=== PATIENT | male | born 1980 | race Caucasian/White ===

== ENCOUNTER 2023-09-05 00:15 | Emergency (ER) | payer OTHER, SELFPAY ==
[2023-09-05 00:16] VITALS: BMI 40.8
[2023-09-05 00:21] VITALS: BP 127/89
[2023-09-05 05:47] VITALS: BP 124/81
[2023-09-05 06:00] VITALS: BP 128/86
--- NOTE | 2023-09-05 06:49 | ED.GENMED ---
History of Present Illness
General
Chief Complaint: Bowel Problem
Source: patient and spouse
Exam Limitations: none
Time Seen by Provider: 09/05/23 05:28
Nursing documentation reviewed up to this point in time: agreed with
Travel History
Have you had any contact with someone who has COVID-19?: No
Do you have any symptoms of coronavirus? Fever > 100 degrees, chills, cough, shortness of breath, sore throat, loss of taste or smell, muscle aches, or headache?: No
History of Present Illness
History of Present Illness:
This is a 42-year-old gentleman who underwent right knee arthroscopy August 26. He has been taking oxycodone postoperative until just 2 days ago. He complains of significant constipation with lower abdominal discomfort and bloating. His last bowel
movement was a small hard nonbloody stool 2 days ago.
He has been taking stool softeners since initiating oxycodone after surgery but since yesterday initiated Metamucil and he also consumed a full bottle of magnesium citrate. He admits to some intermittent rectal pressure which comes and goes. He
denies rectal pain. He denies nausea nor vomiting. He denies fever nor chills. No difficulty urinating. His appetite has been good.
No prior history of constipation.
Past History
Past History
ED Past Medical History: Hypothyroidism and Other (lumbar disc disease)
ED Past Surgical History: Orthopedic (Right knee arthroscopy August 27, 2023)
Social History
Tobacco: Non-smoker
Alcohol: Occasional
Personal:
Living: with family
Employment: Employed
Family History
Family History: Other (Noncontributory)
Phy Exam
Physical Exam
Physical Exam:
GENERAL: 42-year-old gentleman appears his stated age, awake and alert, pleasant, appears mildly uncomfortable but easily communicative. is accompanying.
EYE: anicteric
NECK: Supple, nontender, no meningismus, no significant adenopathy.
ENT: oral mucosa is moist. No rhinorrhea.
CARDIAC: Regular rate and rhythm. no murmur.
LUNGS: Clear breath sounds bilaterally, no acute respiratory distress, no wheezes/rales/rhonchi
ABDOMEN: Soft, mildly distended, mild generalized tenderness to the lower abdomen without rebound or guarding or rigidity, normoactive BS.
NEUROLOGICAL: Alert and oriented x3, no focal neuro deficits. Gait is steady.
SKIN: Warm and dry, normal color, skin intact. No rash.
MUSCULOSKELETAL: No C/C/E. peripheral pulses are full and equal b/l. There is an Paulo wrap that is dry and intact covering right knee. Minimal tenderness about the right knee. Mildly restricted flexion of right knee.
PSYCH: Normal and appropriate interaction.
Course
Orders/Labs/Results
Orders:
Orders
09/05/23 00:29
Obstruct Series W/PA Chest [CR Obstruct Series W/pa Chest] Urgent
Comment:
Reason For Exam: no BM for 2 days post op knee
09/05/23 05:42
Bladder Scan- Treatment ONCE
Enema- Treatment ONCE
Type: Milk of Molasses
Vital Signs
Initial and Last Documented VS:
Initial Vital Signs
Temp Pulse Resp BP Pulse Ox
98.2 F 98 16 127/89 98
09/05/23 00:21 09/05/23 00:21 09/05/23 00:21 09/05/23 00:21 09/05/23 00:21
Last Documented Vital Signs
Temp Pulse Resp BP Pulse Ox
98.2 F 98 16 128/86 97
09/05/23 00:21 09/05/23 00:21 09/05/23 00:21 09/05/23 06:00 09/05/23 06:00
MDM/Problems Addressed
Differential Diagnosis Includes:
Patient presents with what I suspect is opioid induced constipation.
Abdomen is soft with mild tenderness suprapubic region.
Obstruction series shows moderate stool within the rectosigmoid region with symmetric air-fluid levels ascending as well as descending colon suspicious for ileus. There is no evidence of obstruction, no free air.
Will check bladder scan assess for potential bladder outlet obstruction and plan for milk of molasses enema.
Vital signs are stable and overall nontoxic in appearance. No indication for laboratory studies at this point.
*Radiology
Radiology exam reviewed: preliminary read by ED provider
*Pulse Oximetry
Patient hypoxic: no
*Critical Care Note
Total Time (30-74mins, 75-104mins- exclusive of procedures): Not Applicable
Update Note
Update Note:
09/05/2023 0745 AM
Bladder scan only reveals 340 mL in the bladder and patient was able to void without difficulty prior to receiving milk of molasses enema.
He has had success after enema passing a large firm/soft stool and feels markedly improved. Patient
No abdominal pain and eager to be discharged to home.
Recommend he avoid any further laxatives today, especially after consuming a whole bottle of magnesium citrate last night.
Discussed importance of remaining well-hydrated on a daily basis.
Continue to avoid opioid medications, he may take Tylenol versus ibuprofen as needed for knee pain.
Prompt follow-up with PCP as well as orthopedist.
ED Attending Note
-
Portions of this chart may have been created with voice recognition software.� Occasional wrong word or��sound alike� substitutions may have occurred due to the inherent limitations of voice recognition software.
Discharge Plan
Departure
Patient Disposition: Home (Routine Discharge)
Date of Disposition: 09/05/23
Time of Disposition: 07:45
Patient with high blood pressure during this ER visit?: No
Condition: Good
Discharge Problem:
Therapeutic opioid-induced constipation (OIC)
Instructions: Constipation, Adult (DC)
Prescriptions:
No Action
naproxen 250 MG tablet
250 mg PO BID
prednisolone acetate 1 DROP drops,suspension
1 drp LEFT EYE Q2H
Referrals:
Eduardo Rocha DO [Family Provider] - Call in 1-3 days for appt
Interventions
Interventions:
*Risk Screen - Suicide Last Done: 09/05/23 00:21
*Neglect/Abuse Screening Last Done: 09/05/23 00:21
*ED COVID-19 Vaccine History Last Done: 09/05/23 00:21
YP-Gavcqd-Ewrsredaur Assessment Last Done: 09/05/23 05:36
Discharge Date and Time
Print Language: [place]
== END 2023-09-05 08:39 | disposition home or self-care (01) ==
LOC: EMR 00:15
PROVIDERS: EMERGENCY PHYSICIAN Emergency Medicine; FAMILY PHYSICIAN Family Medicine
DX: K59.00 Constipation, unspecified (principal); T40.2X5A Adverse effect of other opioids, initial encounter
CPT/HCPCS: 99283; 51798; 74022